=== PATIENT | female | born 1970 | race Caucasian/White ===

== ENCOUNTER 2018-11-22 23:59 | Emergency (ER) | payer BC ==
[~2018-11-22] VITALS: Ht 152.4 cm; Wt 46.5 kg
[~2018-11-22 23:59] MED LIST: ACET-2158 PO; ASPI325T29 GTB; FAMO-95 PO; FIORICET PO; GUAI118L94 PO; IPRA3AMP29 INH; ONDA4TAB14 PO; PRED50TA PO; RTPRO NEB
[2018-11-23 00:02] VITALS: Ht 152.4 cm; Wt 46.5 kg
[2018-11-23] MEDS ORDERED: SOD CHLORIDE 0.9% 500 ML IV STA (01:09)
[2018-11-23] MEDS ORDERED: KETOROLAC 30 MG INJ IV STA (01:09)
--- NOTE | 2018-11-23 04:58 | ERD ---
ER Documentation Chief Complaint Chief Complaint C/O WORSENING LT LOWER ABDOMINAL PAIN X2 DAYS, - N/V/D HPI This very pleasant 48-year-old female presents with 2 days of left lower quadrant and left pelvic pain. She describes it as sharp, constant and catching in nature. She denies any flank pain fevers or chills dysuria urgency or frequency. No vaginal bleeding or discharge. Symptoms are moderate at this time. No prior history of ovarian cyst or torsion. ROS All systems reviewed and are negative except as per history of present illness. Medications Home Meds Active Scripts Metronidazole* (Flagyl*) 500 Mg Tablet, 500 MG PO TID for 5 Days, TAB Prov:PANCHO GUERRA MD 11/23/18 Ciprofloxacin Hcl* (Ciprofloxacin Hcl*) 500 Mg Tablet, 500 MG PO BID for 5 Days, TAB Prov:PANCHO GUERRA MD 11/23/18 Dicyclomine HCl (Dicyclomine HCl) 10 Mg Capsule, 10 MG PO TID PRN for ABDOMINAL CRAMPING, #20 CAP Prov:PANCHO GUERRA MD 11/23/18 Ondansetron (Ondansetron Odt) 4 Mg Tab.rapdis, 4 MG PO Q8 PRN for NAUSEA AND/OR VOMITING, #30 TAB Prov:NATALIIA MORALES NP 03/25/16 Acetamin/Butalbital/Caffeine* (Fioricet*) [id number] Tab, 1 TAB PO Q6H PRN for PAIN, #30 TAB Prov:NATALIIA MORALES NP 03/25/16 Prednisone* (Prednisone*) 50 Mg Tablet, 50 MG PO DAILY for 5 Days, TAB Prov:NATALIIA MORALES NP 08/24/15 Guaifenesin-Codeine Phosphate* (Guaifenesin* with Codeine Liq) 120 Ml Liquid, 5 ML PO Q4H for COUGH, #60 ML Prov:NATALIIA MORALES NP 08/24/15 Ipratropium-Albuterol (Ipratropium-Albuterol) 0.5-3 Mg/3 Ml Ampul.neb, 3 ML INH Q4H PRN for SHORTNESS OF BREATH, #30 AMP Prov:NATALIIA MORALES NP 08/24/15 Aspirin (Aspirin Lite-Coat) 325 Mg Tab, 325 MG GTB DAILY, #20 BOTTLE Prov:ALEJA CARRIZALES MD 01/04/15 Famotidine* (Pepcid* AC) 20 Mg Tab, 20 MG PO BID for 7 Days, BOT Prov:ALEJA CARRIZALES MD 01/04/15 Acetaminophen (TYLENOL 325 MG TAB) 325 Mg Tab, 650 MG PO Q6H PRN for PAIN LEVEL 1-3 OR FEVER for 10 Days, TAB Prov:ALEJA CARRIZALES MD 01/04/15 Reported Medications Albuterol Sulfate* (Proventil* Neb) Unknown Strength Neb, NEB Q4 PRN for SHORTNESS OF BREATH, #30 EA 08/24/15 Allergies Allergies: Coded Allergies: No Known Drug Allergies (Verified Allergy, Unknown, 01/03/15) PMhx/Soc History of Surgery: No Anesthesia Reaction: No Hx Neurological Disorder: No Hx Respiratory Disorders: Yes (Hx Asthma ) Hx Cardiac Disorders: No Hx Psychiatric Problems: No Hx Miscellaneous Medical Probl: No Hx Alcohol Use: No Hx Substance Use: No Hx Tobacco Use: No Smoking Status: Never smoker FmHx Family History: No diabetes Physical Exam Vitals Vital Signs Date Temp Pulse Resp B/P (MAP) Pulse Ox O2 O2 Flow FiO2 Time Delivery Rate 11/23/18 98.5 70 16 118/68 97 Room Air 02:27 (85) 11/23/18 98.0 73 20 121/75 97 00:02 (90) Physical Exam General: Well developed, well nourished, no acute distress Head: Normocephalic, atraumatic. Eyes: Pupils equally reactive, EOM intact ENT: Moist mucous membranes Neck: Supple, no lymphadenopathy Respiratory: Lungs clear bilaterally, no distress Cardiovascular: RRR, no murmurs, rubs, or gallops Abdominal: Soft, tenderness located to the left lower quadrant more in the pelvic region and abdomen. Mild voluntary guarding, no peritonitis. : Deferred MSK: No edema, no unilateral swelling, 5/5 strength Neurologic: Alert and oriented, moving all extremities, normal speech, no focal weakness, no cerebellar signs Skin: No rash Psych: Normal mood Result Diagram: 11/23/18 0120 11/23/18 0120 Results 24 hrs Laboratory Tests Test 11/23/18 01:20 11/23/18 01:32 White Blood Count 6.9 10^3/ul Red Blood Count 4.30 10^6/ul Hemoglobin 13.1 g/dl Hematocrit 40.1 % Mean Corpuscular Volume 93.3 fl Mean Corpuscular Hemoglobin 30.5 pg Mean Corpuscular Hemoglobin Concent 32.7 g/dl Red Cell Distribution Width 12.5 % Platelet Count 243 10^3/UL Mean Platelet Volume 11.1 fl Immature Granulocytes % 0.300 % Neutrophils % 44.9 % Lymphocytes % 40.0 % Monocytes % 6.6 % Eosinophils % 6.9 % Basophils % 1.3 % Nucleated Red Blood Cells % 0.0 /100WBC Immature Granulocytes # 0.020 10^3/ul Neutrophils # 3.1 10^3/ul Lymphocytes # 2.8 10^3/ul Monocytes # 0.5 10^3/ul Eosinophils # 0.5 10^3/ul Basophils # 0.1 10^3/ul Nucleated Red Blood Cells # 0.0 10^3/ul Urine Color YELLOW Urine Clarity SLIGHTLY CLOUDY Urine pH 6.0 Urine Specific Silas 1.015 Urine Ketones TRACE mg/dL Urine Nitrite NEGATIVE mg/dL Urine Bilirubin NEGATIVE mg/dL Urine Urobilinogen NEGATIVE mg/dL Urine Leukocyte Esterase 1+ Sona/ul Urine Microscopic RBC 1 /HPF Urine Microscopic WBC 12 /HPF Urine Squamous Epithelial Cells FEW /HPF Urine Bacteria FEW /HPF Urine Hemoglobin 1+ mg/dL Urine Glucose NEGATIVE mg/dL Urine Total Protein NEGATIVE mg/dl Sodium Level 139 mmol/L Potassium Level 3.8 mmol/L Chloride Level 103 mmol/L Carbon Dioxide Level 28 mmol/L Anion Gap 8 Blood Urea Nitrogen 17 mg/dl Creatinine 0.82 mg/dl Est Glomerular Filtrat Rate mL/min > 60 mL/min Glucose Level 92 mg/dl Calcium Level 9.6 mg/dl POC Beta HCG, Qualitative NEGATIVE Current Medications Medications Dose Sig/León Start Time Status Last (Trade) Ordered Route PRN Stop Time Admin Dose Reason Admin Sodium 500 ml @ Q1H STAT 11/23/18 DC 11/23/18 Chloride 500 mls/hr IV 01:09 01:48 11/23/18 02:08 Ketorolac 30 mg ONCE STAT 11/23/18 DC 11/23/18 Tromethamine IV 01:09 01:48 (Toradol) 11/23/18 01:10 Procedures/MDM EKG, MONITORS, & DIAGNOSTIC IMAGING: Ultrasound pelvis: IMPRESSION: 1. Trace fluid within the endometrial cavity, nonspecific. Otherwise unremarkable appearance of the uterus. 2. Right ovary is not seen. Left ovary appears normal. 3. No pelvic free fluid. RPTAT: HJBB CT a/p IMPRESSION: 1. Mild diffuse thickening of the small bowel with mild mesenteric infiltration suggestive of an enteritis. Clinical correlation is necessary. 2. Retained stool within the proximal colon without obstruction. 3. No CT evidence for appendicitis. 4. Nonobstructing small left mid renal calculus. LAB INTERPRETATION: I reviewed the laboratory testing and it shows urinalysis with slight WBCs MEDICAL DECISION MAKING: Patient presents with focal left lower quadrant abdominal pain. Strongest concern for possible ovarian cyst. Less concern for torsion. Consider possible ureteral stone versus diverticulitis. Pelvic ultrasound to be initiated. No signs or symptoms concerning for pelvic inflammatory disease or TOA ER COURSE: * Patient's ultrasound was unrevealing other than trace free fluid. The patient will benefit from CT imaging of the abdomen pelvis to rule out acute abdominal process. * Pain medication provided * CT showing evidence of colitis. While this is possibly viral the patient does have focal tenderness. Urinalysis concerning for possible UTI * For this reason I believe the patient would benefit from Cipro and Flagyl. This will cover both. The patient can be safely discharged. CONSULTATION: None DISPOSITION PLAN: The patient does not have an identifiable emergent medical condition that warrants inpatient hospitalization at this time. The patient is deemed safe for discharge with outpatient follow-up. We discussed follow up with the patient's primary care doctor within 24 to 48 hours as needed. We also discussed return to the emergency room for worsening symptoms or worsening condition. Outpatient referral: None required Discharge Medications: Cipro, Flagyl, Bentyl Departure Diagnosis: Primary Impression: Colitis Additional Impression: Abdominal pain Abdominal location: left lower quadrant Qualified Codes: R10.32 - Left lower quadrant pain Condition: Stable PANCHO GUERRA MD Nov 23, 2018 04:57
[2018-11-23] MEDS ORDERED: METR500T PO (05:43)
[2018-11-23] MEDS ORDERED: CIPR500T4 PO (05:43)
[2018-11-23] MEDS ORDERED: DICY10CA40 PO (05:43)
[2018-11-23 05:56] VITALS: BP 121/68; PULSE 68; RESP 16
== END 2018-11-23 05:57 | disposition home or self-care (01) ==
LOC: E/R 23:59
DX: K52.9 Noninfective gastroenteritis and colitis, unspecified (principal); R10.2 Pelvic and perineal pain; J45.909 Unspecified asthma, uncomplicated
CPT/HCPCS: 36415; 74176; 76830; 76856; 80048; 81001; 81025; 85025; 96374; 99285; J1885; J7040